=== PATIENT | male | born 1995 | race Hispanic/Latino ===

== ENCOUNTER 2017-12-05 18:32 | Emergency (ER) | payer BC, MEDICAID, OTHER ==
[2017-12-05 18:45] VITALS: BMI 26.5
[2017-12-05 18:46] VITALS: RESP 18
--- NOTE | 2017-12-05 19:54 | C.PDOC ---
History Of Present Illness 21 year old male presents to the ED for evaluation of right thumb pain after a box fell onto his thumb two hours [employer]. He is right hand dominant. He denies other injuries or change in sensation. Chief Complaint (Nursing): Finger,Hand,&Wrist History Per: Patient History/Exam Limitations: no limitations Onset/Duration Of Symptoms: Hrs (2) Current Symptoms Are (Timing): Still Present Quality: "Pain" Additional History Per: Patient Past Medical History Reviewed: Historical Data, Nursing Documentation, Vital Signs Vital Signs: Last Vital Signs Temp 98 F 12/05/17 20:20 Pulse 86 12/05/17 20:20 Resp 18 12/05/17 20:20 BP 123/75 12/05/17 20:20 Pulse Ox 99 12/05/17 22:42 - Medical History PMH: No Chronic Diseases Surgical History: No Surg Hx Family History: States: Unknown Family Hx - Social History Hx Tobacco Use: Yes Hx Alcohol Use: No Hx Substance Use: No - Immunization History Hx Tetanus Toxoid Vaccination: No Hx Influenza Vaccination: Yes Hx Pneumococcal Vaccination: No Review Of Systems Musculoskeletal: Positive for: Other (Right thumb pain ) Neurological: Negative for: Weakness, Numbness Physical Exam - Physical Exam Appears: Non-toxic, No Acute Distress Skin: Normal Color, Warm, Dry Head: Atraumatic, Normacephalic Eye(s): bilateral: Normal Inspection, EOMI Nose: Normal Oral Mucosa: Moist Neck: Normal ROM, Supple Chest: Symmetrical Respiratory: No Accessory Muscle Use Extremity: Normal ROM, Tenderness (to right 1st MCP ), Capillary Refill (less than 2 seconds ), No Deformity, No Swelling Pulses: Left Radial: Normal, Right Radial: Normal Neurological/Psych: Oriented x3, Normal Speech, Normal Cognition, Normal Sensation ED Course And Treatment O2 Sat by Pulse Oximetry: 99 (on RA) Pulse Ox Interpretation: Normal Progress Note: Right hand XR ordered. Results show no fracture or dislocation. Motrin PO administered. Finger splint aplied by RN and checked by me. On re- exam, patient is resting comfortably, showing no signs of distress and reports an improvement in his symptoms. Patient is advised to follow up with his PMD within 1-2 days for further evaluation. Disposition - Disposition Referrals: Geraldine Pringle MD [Staff Provider] - Disposition: HOME/ ROUTINE Disposition Time: 19:52 Condition: STABLE Additional Instructions: Rest, ice and elevate the area. Follow up with your doctor in 1-2 days. Instructions: Contusion (DC) Forms: [facility] (Austrian), Work Excuse - Clinical Impression Clinical Impression: Finger contusion - PA / ELECTRICAL PROSPECTOR / Resident Statement MD/DO has reviewed & agrees with the documentation as recorded. - Scribe Statement The provider has reviewed the documentation as recorded by the Scribe (Selene Coleman) All medical record entries made by the Scribe were at my direction and personally dictated by me. I have reviewed the chart and agree that the record accurately reflects my personal performance of the history, physical exam, medical decision making, and the department course for this patient. I have also personally directed, reviewed, and agree with the discharge instructions and disposition.
[2017-12-05 20:33] VITALS: BP 123/75; PULSE 86; TEMP 98
[2017-12-05 21:25] VITALS: O2SAT 99
--- NOTE | 2017-12-06 10:11 | RAD ---
PROCEDURE: Right Thumb radiographs. HISTORY: trauma COMPARISON: None. TECHNIQUE: AP radiograph of the right hand, as well as spot oblique and lateral images of thumb were obtained. FINDINGS: RIGHT THUMB: Normal right thumb, without fracture or focal lesion. Remainder of the right hand (as seen on the AP view) grossly unremarkable. JOINTS: Normal. SOFT TISSUES: Normal. OTHER FINDINGS: None. IMPRESSION: Normal right thumb radiographs.
== END 2017-12-05 20:21 | disposition home or self-care (01) ==
LOC: C.ER 18:32
DX: S60.011A Contusion of right thumb without damage to nail, initial encounter (principal); W22.8XXA Striking against or struck by other objects, initial encounter; Y92.9 Unspecified place or not applicable